=== PATIENT | female | born 1935 | race Caucasian/White ===

== ENCOUNTER 2018-01-01 05:42 | Inpatient (IN) ==
[2018-01-01] MEDS ORDERED: VANCOMYCIN INJ 1,000 MG in SODIUM CHLORIDE 0.9% 250 ML IV ONE (06:00)
[2018-01-01] MEDS ORDERED: ceFAZolin 1,000 MG in SYRINGE 1 EACH IV ONE (06:00)
[2018-01-01] MEDS ORDERED: FAMOTIDINE 20 MG TABLET PO ONE (06:00)
[2018-01-01] MEDS ORDERED: DIAZEPAM 2 MG TABLET PO ONE (06:00)
[2018-01-01] MEDS ORDERED: VANCOMYCIN 1,000 MG VIAL ONE (06:22)
[2018-01-01] MEDS ORDERED: ceFAZolin 1,000 MG VIAL ONE (06:22)
[2018-01-01] MEDS ORDERED: FAMOTIDINE 20 MG TABLET ONE (06:22)
[2018-01-01] MEDS ORDERED: DIAZEPAM 2 MG TABLET ONE (06:22)
[2018-01-01] MEDS ORDERED: TRANEXAMIC ACID 1,000 MG/10 ML VIAL ONE (06:36)
[2018-01-01] MEDS ORDERED: ROPIVACAINE 0.5% 30 ML VIAL ONE (06:37)
[2018-01-01] MEDS: LACTATED RINGERS 1,000 ML IV SCH (07:00)
[2018-01-01] MEDS ORDERED: BACITRACIN OINT 0.9 GM PACK TOP ONE (08:52)
[2018-01-01] MEDS ORDERED: MORPHINE 4 MG/1 ML VIAL IV PRN ×2 (09:21)
[2018-01-01] MEDS ORDERED: oxyCODONE IR 5 MG TABLET PO PRN (09:21)
[2018-01-01] MEDS ORDERED: MAGNESIUM HYDROXIDE SUSP 30 ML UDCUP PO PRN (09:21)
[2018-01-01] MEDS ORDERED: PROPOFOL 200 MG/20 ML VIAL IV ONE (09:37)
[2018-01-01] MEDS ORDERED: SEVOFLURANE 1 UNIT/15 MINUTE INH ONE (09:37)
[2018-01-01] MEDS ORDERED: PHENYLEPHRINE 10 MG/1 ML VIAL IV ONE (09:38)
[2018-01-01] MEDS ORDERED: ONDANSETRON 4 MG/2 ML VIAL ONE (09:38)
[2018-01-01] MEDS ORDERED: MIDAZOLAM 2 MG/2 ML VIAL ONE (09:38)
[2018-01-01] MEDS ORDERED: ROCURONIUM 100 MG/10 ML VIAL IV ONE (09:38)
[2018-01-01] MEDS ORDERED: ePHEDrine 50 MG/ML AMP ONE (09:38)
[2018-01-01] MEDS ORDERED: ACETAMINOPHEN 1,000 MG/100 ML VIAL IV ONE (09:38)
[2018-01-01] MEDS: KETOROLAC 15 MG/1 ML VIAL IV SCH ×3 (11:55→23:44)
[2018-01-01] MEDS: DEXT 5% LACT RING KCL 20 MEQ 20 MEQ/1,000 ML BAG IV SCH ×2 (12:58→22:40)
[2018-01-01] MEDS: oxyCODONE IR 5 MG TABLET PO PRN ×2 (15:24→19:46)
[2018-01-01] MEDS: ceFAZolin 1,000 MG in SYRINGE 1 EACH IV SCH ×2 (15:30→22:38)
[2018-01-01] MEDS: ACETAMINOPHEN 500 MG TABLET PO SCH ×2 (16:49→22:39)
[2018-01-01] MEDS: ONDANSETRON 4 MG/2 ML VIAL IV PRN (17:24)
[2018-01-02] MEDS: oxyCODONE IR 5 MG TABLET PO PRN (04:58)
[2018-01-02] MEDS: ONDANSETRON 4 MG/2 ML VIAL IV PRN (04:58)
[2018-01-02] MEDS: ACETAMINOPHEN 500 MG TABLET PO SCH ×2 (05:08→09:49)
[2018-01-02 05:41] LABS: Basophils # 0.1 10*3/uL (0.0-0.2); Basophils % 0.5 % (0.0-0.8); Eosinophils # 0.2 10*3/uL (0.0-0.87); Eosinophils % 2.5 % (0.00-10.9); Hematocrit 36.4 VOL% (35.7-47.0); Hemoglobin 12.6 GM/DL (12.0-16.0); Immature Granulocytes % 0.3 %; Immature Granulocytes Absolute 0.03 #; Lymphocytes # 1.8 10*3/uL (1.4-4.0); Lymphocytes % 18.6 % (21.3-54.2); Mean Corpuscular HGB Conc 34.6 GM/DL (32-36); Mean Corpuscular Hemoglobin 32 PG (27-34); Mean Corpuscular Volume 92.6 FL (87-102); Mean Platelet Volume 11.1 FL (9.6-12.0); Monocytes # 0.6 10*3/uL (0.11-0.8); Monocytes % 6.7 % (1.7-12.7); Neutrophils # 6.8 10*3/uL (1.4-7.4); Neutrophils % 71.4 % (38.7-73.9); Platelet Count 235 T/CUMM (130-400); Red Blood Count 3.93 MC/CUMM (3.8-5.5); Red Cell Distribution Width 12.5 % (9.3-17.3); White Blood Count 9.6 T/CUMM (4-12)
[2018-01-02] MEDS: LACTATED RINGERS 1,000 ML IV SCH (06:11)
[2018-01-02 06:17] LABS: Calcium 8.6 MG/DL (8.5-10.1); Osmolality,Calculated 264.5 MOS/KG (273-304); Potassium 3.6 MMOL/L (3.5-5.1)
[2018-01-02] MEDS ORDERED: LISINOPRIL 20 MG TABLET PO SCH (09:00)
[2018-01-02] MEDS ORDERED: ASPIRIN 325 MG TABLET PO SCH (09:00)
[2018-01-02] MEDS ORDERED: amLODIPine 5 MG TABLET PO SCH (09:00)
[2018-01-02] MEDS ORDERED: MAGNESIUM PO SCH (09:00)
[2018-01-02] MEDS ORDERED: SIMVASTATIN 20 MG TABLET PO SCH (09:00)
[2018-01-02] MEDS ORDERED: POTASSIUM CHLORIDE 10 MEQ TABLET PO SCH (09:00)
[2018-01-02] MEDS ORDERED: PANTOPRAZOLE 40 MG TABLET PO SCH (09:00)
[2018-01-02] MEDS ORDERED: ATENOLOL/CHLORTHALIDONE 50-25 MG TABLET PO SCH (09:00)
[2018-01-02] MEDS: DEXT 5% LACT RING KCL 20 MEQ 20 MEQ/1,000 ML BAG IV SCH (09:04)
[2018-01-02 11:48] VITALS: BP 168/67
== END 2018-01-02 12:07 | disposition home health service (06) | DRG 483 ==
LOC: N.OR 05:42 → N.SDSINP 05:43 → N.3E 10:22
PROVIDERS: ADMIT Orthopaedic Surgery; ATTEND Orthopaedic Surgery

== ENCOUNTER 2019-10-07 16:41 | Observation (INO) ==
[2019-10-07] MEDS ORDERED: ONDANSETRON 4 MG/2 ML VIAL IV PRN (16:45)
[2019-10-07] MEDS ORDERED: ACETAMINOPHEN 325 MG TABLET PO PRN (16:45)
[2019-10-07] MEDS ORDERED: DOCUSATE SODIUM 100 MG CAPSULE PO PRN (16:45)
[2019-10-07] MEDS ORDERED: ENOXAPARIN 80 MG/0.8 ML SYRINGE SUBCUT SCH (18:00)
[2019-10-07] MEDS ORDERED: oxyCODONE/ACETAMINOPHEN 5-325 MG TABLET PO PRN (18:40)
[2019-10-07 19:35] LABS: Basophils # 0.1 10*3/uL (0.0-0.2); Basophils % 0.6 % (0.0-0.8); Eosinophils # 0.2 10*3/uL (0.0-0.87); Eosinophils % 2.6 % (0.00-10.9); Hematocrit 38.8 VOL% (35.7-47.0); Hemoglobin 12.8 GM/DL (12.0-16.0); Immature Granulocytes % 0.5 %; Immature Granulocytes Absolute 0.04 #; Lymphocytes # 2.6 10*3/uL (1.4-4.0); Lymphocytes % 30.4 % (21.3-54.2); Mean Corpuscular Volume 98.5 FL (87-102); Monocytes % 6.4 % (1.7-12.7); Neutrophils % 59.5 % (38.7-73.9); Platelet Count 235 T/CUMM (130-400); Red Blood Count 3.94 MC/CUMM (3.8-5.5); Red Cell Distribution Width 11.2 % (9.3-17.3); White Blood Count 8.5 T/CUMM (4-12)
[2019-10-07 19:53] LABS: Albumin 3.7 G/DL (3.4-5.0); Bilirubin,Total 0.5 MG/DL (0.2-1.0); Calcium 9.1 MG/DL (8.5-10.1); Osmolality,Calculated 270.2 MOS/KG (273-304); Total Protein 7.2 G/DL (6.4-8.3)
[2019-10-07 19:56] LABS: Troponin I 0.195 NG/ML (0.00-0.045)
[2019-10-07] MEDS: NITROGLYCERIN 2% OINT 1 INCH/GM PACK TOP SCH (20:45)
[2019-10-07] MEDS: SODIUM CHLORIDE 0.9% 1,000 ML IV SCH (20:45)
[2019-10-08 05:50] LABS: VLDL CHOLESTEROL 18.6 MG/DL
[2019-10-08 05:51] LABS: Risk Ratio 2.16; Thyroid Stimulating Hormone 5.65 uIU/ml (0.358-3.74)
[2019-10-08] MEDS: MAGNESIUM GLUCONATE 500 MG TABLET PO SCH (09:20)
[2019-10-08] MEDS: ASPIRIN 325 MG TABLET PO SCH (09:20)
[2019-10-08] MEDS: amLODIPine 5 MG TABLET PO SCH (09:20)
[2019-10-08] MEDS: lisinopriL 20 MG TABLET PO SCH ×2 (09:21→21:29)
[2019-10-08] MEDS: atenoloL 50 MG TABLET PO SCH (09:21)
[2019-10-08] MEDS: POTASSIUM CHLORIDE 10 MEQ TABLET PO SCH (09:21)
[2019-10-08] MEDS: SIMVASTATIN 20 MG TABLET PO SCH (09:21)
[2019-10-08] MEDS: PANTOPRAZOLE 40 MG TABLET PO SCH (09:21)
[2019-10-08] MEDS: CHLORTHALIDONE 25 MG TABLET PO SCH (09:21)
[2019-10-08] MEDS: NITROGLYCERIN 2% OINT 1 INCH/GM PACK TOP SCH ×2 (09:22→21:29)
[2019-10-08] MEDS: SODIUM CHLORIDE 0.9% 1,000 ML IV SCH ×3 (09:22→20:47)
[2019-10-08 11:46] LABS: Apearance,Urine CLEAR (Clear); Bilirubin,Urine Negative (Negative); Blood, Urine Negative (Negative); Glucose,Urine (UA) Negative (Negative); Ketones,Urine Negative (Negative); Mucus,Urine Occasional /LPF (Occasional); Nitrite,Urine Negative (Negative); Protein,Urine Negative; RBC,Urine 1 /HPF (0-4); Squamous Epithelial Cell,Urine Occasional /HPF (0-10); Urine Color Colorless (Yellow); Urine Specific Gravity 1.005 (1.001-1.035); Urine Urobilinogen < 2.0 EU/DL (0.2-1.0); WBC,Urine <1 /HPF (0-6)
[2019-10-08] MEDS: ENOXAPARIN 80 MG/0.8 ML SYRINGE SUBCUT SCH (13:08)
[2019-10-08] MEDS ORDERED: REGADENOSON 0.4 MG/5 ML SYRINGE IV ONE (14:40)
[2019-10-09] MEDS: ENOXAPARIN 80 MG/0.8 ML SYRINGE SUBCUT SCH (00:26)
[2019-10-09] MEDS: SODIUM CHLORIDE 0.9% 1,000 ML IV SCH ×2 (03:34→09:29)
[2019-10-09] MEDS: POTASSIUM CHLORIDE 10 MEQ TABLET PO SCH (08:45)
[2019-10-09] MEDS: lisinopriL 20 MG TABLET PO SCH (08:45)
[2019-10-09] MEDS: MAGNESIUM GLUCONATE 500 MG TABLET PO SCH (08:45)
[2019-10-09] MEDS: CHLORTHALIDONE 25 MG TABLET PO SCH (08:45)
[2019-10-09] MEDS: amLODIPine 5 MG TABLET PO SCH (08:46)
[2019-10-09] MEDS: ASPIRIN 325 MG TABLET PO SCH (08:46)
[2019-10-09] MEDS: PANTOPRAZOLE 40 MG TABLET PO SCH (08:46)
[2019-10-09] MEDS: atenoloL 50 MG TABLET PO SCH (08:46)
[2019-10-09] MEDS: SIMVASTATIN 20 MG TABLET PO SCH (08:47)
[2019-10-09 08:52] VITALS: BP 157/85
[2019-10-09] MEDS: NITROGLYCERIN 2% OINT 1 INCH/GM PACK TOP SCH (09:29)
== END 2019-10-09 09:10 | disposition home or self-care (01) ==
LOC: N.TELES
PROVIDERS: ADMIT Family Medicine; ATTEND Family Medicine

== ENCOUNTER 2019-10-13 16:13 | Inpatient (IN) ==
[2019-10-13] MEDS ORDERED: HEPARIN/NACL 0.9% 2 UNITS/ML 1,000 ML IV ONE (16:25)
[2019-10-13] MEDS ORDERED: MIDAZOLAM 2 MG/2 ML VIAL ONE (16:25)
[2019-10-13] MEDS ORDERED: HYDROmorphone 2 MG/1 ML VIAL ONE (16:25)
[2019-10-13] MEDS ORDERED: LIDOCAINE 1% 20 ML VIAL ONE (16:25)
[2019-10-13] MEDS ORDERED: ENOXAPARIN 100 MG/ML SYRINGE SUBCUT STA (16:26)
[2019-10-13] MEDS ORDERED: ASPIRIN 325 MG TABLET PO STA (16:26)
[2019-10-13] MEDS ORDERED: NITROGLYCERIN SL 0.4 MG TABLET SL PRN (16:26)
[2019-10-13] MEDS ORDERED: HEPARIN/NACL 0.9% 2 UNITS/ML 500 ML IV ONE (16:35)
[2019-10-13] MEDS ORDERED: BIVALIRUDIN 250 MG VIAL IV ONE (16:39)
[2019-10-13 16:43] LABS: Basophils # 0.1 10*3/uL (0.0-0.2); Basophils % 0.6 % (0.0-0.8); Eosinophils # 0.2 10*3/uL (0.0-0.87); Eosinophils % 1.4 % (0.00-10.9); Hematocrit 41.3 VOL% (35.7-47.0); Hemoglobin 13.5 GM/DL (12.0-16.0); Immature Granulocytes % 0.3 %; Immature Granulocytes Absolute 0.03 #; Lymphocytes # 3.1 10*3/uL (1.4-4.0); Lymphocytes % 27.7 % (21.3-54.2); Mean Corpuscular HGB Conc 32.7 GM/DL (32-36); Mean Platelet Volume 10.9 FL (9.6-12.0); Monocytes % 5.9 % (1.7-12.7); Neutrophils % 64.1 % (38.7-73.9); Platelet Count 282 T/CUMM (130-400); Red Blood Count 4.13 MC/CUMM (3.8-5.5); Red Cell Distribution Width 11.6 % (9.3-17.3); White Blood Count 11.1 T/CUMM (4-12)
[2019-10-13] MEDS ORDERED: ATROPINE 1 MG/10 ML SYRINGE ONE ×2 (16:47→16:52)
[2019-10-13] MEDS ORDERED: diphenhydrAMINE CAP 25 MG CAPSULE PO PRN (16:54)
[2019-10-13] MEDS ORDERED: ALUMINUM/MAGNES/SIMETH MAX STR 30 ML UDCUP PO PRN (16:54)
[2019-10-13] MEDS ORDERED: ZALEPLON 5 MG CAPSULE PO PRN (16:54)
[2019-10-13] MEDS ORDERED: hydrALAZINE 20 MG/1 ML VIAL IV PRN (16:54)
[2019-10-13] MEDS ORDERED: LACTULOSE 20 GM/30 ML UDCUP PO PRN (16:54)
[2019-10-13] MEDS ORDERED: MAGNESIUM SULF RIDER 4 GM in PREMIX 1 EACH IV PRN (16:54)
[2019-10-13] MEDS ORDERED: ACETAMINOPHEN 325 MG TABLET PO PRN (16:54)
[2019-10-13] MEDS ORDERED: guaiFENesin/DM ER 600-30 MG TABLET PO PRN (16:54)
[2019-10-13] MEDS ORDERED: CALCIUM CARBONATE CHEW 500 MG TABLET PO PRN (16:54)
[2019-10-13] MEDS ORDERED: BISACODYL 5 MG TABLET PO PRN (16:54)
[2019-10-13] MEDS ORDERED: SIMETHICONE CHEW 125 MG TABLET PO PRN (16:54)
[2019-10-13] MEDS ORDERED: MAGNESIUM SULF RIDER 2 GM in PREMIX 1 EACH IV PRN (16:54)
[2019-10-13] MEDS ORDERED: MORPHINE 4 MG/1 ML VIAL IV PRN (16:54)
[2019-10-13 17:00] LABS: Albumin 3.9 G/DL (3.4-5.0); Bilirubin,Total 0.7 MG/DL (0.2-1.0); Calcium 9.6 MG/DL (8.5-10.1); Osmolality,Calculated 275.2 MOS/KG (273-304); Total Protein 7.2 G/DL (6.4-8.3)
[2019-10-13] MEDS: BIVALIRUDIN 250 MG in SODIUM CHLORIDE 0.9% 50 ML IV SCH ×3 (17:37→21:21)
[2019-10-13] MEDS ORDERED: FUROSEMIDE 40 MG/4 ML VIAL IV STA (18:08)
[2019-10-13] MEDS ORDERED: FUROSEMIDE 40 MG/4 ML VIAL ONE (18:12)
[2019-10-13] MEDS ORDERED: ALBUTEROL/IPRATROPIUM 3 ML NEB RESP TX STA (18:34)
[2019-10-13] MEDS ORDERED: ALBUTEROL/IPRATROPIUM 3 ML NEB RESP TX PRN (18:34)
[2019-10-13 19:01] LABS: INR 4.3
[2019-10-13 19:02] LABS: PT Patient Result 46.1 SECS (9.6-12.2); Partial Thromboplastin Time 88.6 SECS (20.8-36.0)
[2019-10-13 19:14] LABS: CKMB % 5.2 %
[2019-10-13 19:16] LABS: Troponin I 83.4 NG/ML (0.00-0.045)
[2019-10-13] MEDS: ALBUTEROL/IPRATROPIUM 3 ML NEB RESP TX SCH (19:40)
[2019-10-13] MEDS: ROSUVASTATIN 20 MG TABLET PO SCH (21:02)
[2019-10-13] MEDS: TICAGRELOR 90 MG TABLET PO SCH (21:02)
[2019-10-13] MEDS: ONDANSETRON 4 MG/2 ML VIAL IV PRN (21:12)
[2019-10-13] MEDS: oxyCODONE/ACETAMINOPHEN 5-325 MG TABLET PO SCH (22:11)
[2019-10-13 22:43] LABS: CKMB % 6.3 %
[2019-10-13 22:46] LABS: Troponin I > 200.000 NG/ML (0.00-0.045)
[2019-10-14] MEDS: ALBUTEROL/IPRATROPIUM 3 ML NEB RESP TX SCH ×4 (01:02→19:20)
[2019-10-14 02:42] LABS: CKMB % 5.9 %
[2019-10-14 02:47] LABS: Troponin I > 200.000 NG/ML (0.00-0.045)
[2019-10-14] MEDS: ONDANSETRON 4 MG/2 ML VIAL IV PRN (05:10)
[2019-10-14 05:34] LABS: Basophils % 0.3 % (0.0-0.8); Eosinophils # 0.1 10*3/uL (0.0-0.87); Hematocrit 36.7 VOL% (35.7-47.0); Hemoglobin 12.3 GM/DL (12.0-16.0); Immature Granulocytes % 0.4 %; Immature Granulocytes Absolute 0.06 #; Lymphocytes # 1.6 10*3/uL (1.4-4.0); Lymphocytes % 10.9 % (21.3-54.2); Mean Corpuscular HGB Conc 33.5 GM/DL (32-36); Mean Corpuscular Volume 97.1 FL (87-102); Mean Platelet Volume 10.9 FL (9.6-12.0); Monocytes % 6.6 % (1.7-12.7); Neutrophils % 80.8 % (38.7-73.9); Platelet Count 228 T/CUMM (130-400); Red Blood Count 3.78 MC/CUMM (3.8-5.5); Red Cell Distribution Width 11.7 % (9.3-17.3); White Blood Count 14.3 T/CUMM (4-12)
[2019-10-14 06:09] LABS: Calcium 8.5 MG/DL (8.5-10.1); Estimated Glom Filtration Rate 37 ML/MIN
[2019-10-14 06:10] LABS: Blood Urea Nitrogen 19 MG/DL (7-18); CKMB % 5.6 %; Glucose 140 MG/DL (74-106); HDL Cholesterol 57 MG/DL (40-60); Osmolality,Calculated 273.1 MOS/KG (273-304); Risk Ratio 2.18; Triglycerides 99 MG/DL (2-150); VLDL CHOLESTEROL 19.8 MG/DL
[2019-10-14 06:12] LABS: Troponin I > 200.000 NG/ML (0.00-0.045)
[2019-10-14] MEDS ORDERED: PROMETHAZINE INJ 12.5 MG in SODIUM CHLORIDE 0.9% 50 ML IV PRN (06:17)
[2019-10-14] MEDS ORDERED: SODIUM CHLORIDE 0.9% 250 ML IV ONE (06:17)
[2019-10-14 06:41] LABS: INR 1.1; PT Patient Result 11.4 SECS (9.6-12.2)
[2019-10-14] MEDS ORDERED: POTASSIUM CHLORIDE 20 MEQ TABLET PO ONE (08:26)
[2019-10-14] MEDS ORDERED: PANTOPRAZOLE 40 MG TABLET PO SCH (09:00)
[2019-10-14] MEDS: MAGNESIUM OXIDE 400 MG TABLET PO SCH (09:27)
[2019-10-14] MEDS: POTASSIUM CHLORIDE 10 MEQ TABLET PO SCH (09:29)
[2019-10-14] MEDS: TICAGRELOR 90 MG TABLET PO SCH ×2 (09:29→22:35)
[2019-10-14] MEDS: oxyCODONE/ACETAMINOPHEN 5-325 MG TABLET PO SCH ×2 (09:29→22:35)
[2019-10-14] MEDS: ASPIRIN CHEW 81 MG TABLET PO SCH (09:29)
[2019-10-14] MEDS: CHLORTHALIDONE 25 MG TABLET PO SCH (09:29)
[2019-10-14] MEDS: PANTOPRAZOLE 40 MG TABLET PO SCH (09:29)
[2019-10-14] MEDS: atenoloL 50 MG TABLET PO SCH (09:30)
[2019-10-14 10:30] LABS: CKMB % 5.2 %
[2019-10-14 10:33] LABS: Troponin I > 200.000 NG/ML (0.00-0.045)
[2019-10-14] MEDS: NITROGLYCERIN 2% OINT 1 INCH/GM PACK TOP SCH ×2 (12:42→18:37)
[2019-10-14] MEDS: ROSUVASTATIN 20 MG TABLET PO SCH (22:35)
[2019-10-15] MEDS: NITROGLYCERIN 2% OINT 1 INCH/GM PACK TOP SCH ×2 (00:08→06:13)
[2019-10-15] MEDS: ALBUTEROL/IPRATROPIUM 3 ML NEB RESP TX SCH ×3 (01:52→15:07)
[2019-10-15 04:49] LABS: Basophils % 0.3 % (0.0-0.8); Eosinophils # 0.3 10*3/uL (0.0-0.87); Eosinophils % 2.6 % (0.00-10.9); Hematocrit 34.4 VOL% (35.7-47.0); Hemoglobin 11.1 GM/DL (12.0-16.0); Immature Granulocytes % 0.4 %; Immature Granulocytes Absolute 0.05 #; Lymphocytes # 1.4 10*3/uL (1.4-4.0); Lymphocytes % 12.1 % (21.3-54.2); Mean Corpuscular HGB Conc 32.3 GM/DL (32-36); Mean Corpuscular Volume 100.3 FL (87-102); Mean Platelet Volume 11.3 FL (9.6-12.0); Neutrophils % 77.6 % (38.7-73.9); Platelet Count 187 T/CUMM (130-400); Red Blood Count 3.43 MC/CUMM (3.8-5.5); Red Cell Distribution Width 11.9 % (9.3-17.3); White Blood Count 11.1 T/CUMM (4-12)
[2019-10-15 04:57] LABS: PT Patient Result 11.1 SECS (9.6-12.2)
[2019-10-15 05:14] LABS: Osmolality,Calculated 271.2 MOS/KG (273-304)
[2019-10-15 05:31] LABS: CKMB % 1.8 %
[2019-10-15 05:35] LABS: Troponin I 90.9 NG/ML (0.00-0.045)
[2019-10-15] MEDS ORDERED: FUROSEMIDE 40 MG/4 ML VIAL IV SCH (09:00)
[2019-10-15] MEDS: MAGNESIUM OXIDE 400 MG TABLET PO SCH (10:03)
[2019-10-15] MEDS: CHLORTHALIDONE 25 MG TABLET PO SCH (10:03)
[2019-10-15] MEDS: oxyCODONE/ACETAMINOPHEN 5-325 MG TABLET PO SCH ×3 (10:03→20:59)
[2019-10-15] MEDS: PANTOPRAZOLE 40 MG TABLET PO SCH (10:04)
[2019-10-15] MEDS: POTASSIUM CHLORIDE 10 MEQ TABLET PO SCH (10:04)
[2019-10-15] MEDS: ASPIRIN CHEW 81 MG TABLET PO SCH (10:04)
[2019-10-15] MEDS: atenoloL 50 MG TABLET PO SCH (10:04)
[2019-10-15] MEDS: TICAGRELOR 90 MG TABLET PO SCH ×2 (10:04→20:59)
[2019-10-15] MEDS: ROSUVASTATIN 20 MG TABLET PO SCH (20:59)
[2019-10-16] MEDS: ALBUTEROL/IPRATROPIUM 3 ML NEB RESP TX SCH ×4 (00:19→19:09)
[2019-10-16 04:38] LABS: Basophils % 0.3 % (0.0-0.8); Eosinophils # 0.4 10*3/uL (0.0-0.87); Eosinophils % 3.6 % (0.00-10.9); Immature Granulocytes % 0.5 %; Immature Granulocytes Absolute 0.05 #; Lymphocytes # 1.4 10*3/uL (1.4-4.0); Lymphocytes % 13.2 % (21.3-54.2); Mean Corpuscular HGB Conc 33.3 GM/DL (32-36); Mean Corpuscular Volume 99.1 FL (87-102); Mean Platelet Volume 11.1 FL (9.6-12.0); Monocytes % 7.9 % (1.7-12.7); Neutrophils % 74.5 % (38.7-73.9); Platelet Count 196 T/CUMM (130-400); Red Blood Count 3.33 MC/CUMM (3.8-5.5); Red Cell Distribution Width 11.9 % (9.3-17.3); White Blood Count 10.8 T/CUMM (4-12)
[2019-10-16 05:20] LABS: CKMB % 0.9 %; Calcium 8.7 MG/DL (8.5-10.1); Osmolality,Calculated 265.7 MOS/KG (273-304)
[2019-10-16 05:21] LABS: Troponin I 59.2 NG/ML (0.00-0.045)
[2019-10-16] MEDS: POTASSIUM CHLORIDE 10 MEQ TABLET PO SCH (08:52)
[2019-10-16] MEDS: MAGNESIUM OXIDE 400 MG TABLET PO SCH (08:52)
[2019-10-16] MEDS: CHLORTHALIDONE 25 MG TABLET PO SCH (08:52)
[2019-10-16] MEDS: ASPIRIN CHEW 81 MG TABLET PO SCH (08:53)
[2019-10-16] MEDS: PANTOPRAZOLE 40 MG TABLET PO SCH (08:53)
[2019-10-16] MEDS: atenoloL 50 MG TABLET PO SCH (08:53)
[2019-10-16] MEDS: TICAGRELOR 90 MG TABLET PO SCH ×2 (08:53→21:59)
[2019-10-16] MEDS: oxyCODONE/ACETAMINOPHEN 5-325 MG TABLET PO SCH ×2 (08:53→21:59)
[2019-10-16] MEDS: POTASSIUM CHLORIDE 20 MEQ TABLET PO PRN ×3 (08:53→15:13)
[2019-10-16] MEDS: ROSUVASTATIN 20 MG TABLET PO SCH (21:59)
[2019-10-17] MEDS: ALBUTEROL/IPRATROPIUM 3 ML NEB RESP TX SCH ×4 (01:51→19:40)
[2019-10-17 05:35] LABS: Basophils % 0.2 % (0.0-0.8); Eosinophils # 0.3 10*3/uL (0.0-0.87); Eosinophils % 3.1 % (0.00-10.9); Hematocrit 32.9 VOL% (35.7-47.0); Immature Granulocytes % 0.5 %; Immature Granulocytes Absolute 0.05 #; Lymphocytes # 1.1 10*3/uL (1.4-4.0); Lymphocytes % 9.8 % (21.3-54.2); Mean Corpuscular HGB Conc 33.4 GM/DL (32-36); Mean Corpuscular Volume 98.8 FL (87-102); Mean Platelet Volume 11.3 FL (9.6-12.0); Monocytes % 6.7 % (1.7-12.7); Neutrophils % 79.7 % (38.7-73.9); Platelet Count 177 T/CUMM (130-400); Red Blood Count 3.33 MC/CUMM (3.8-5.5); Red Cell Distribution Width 11.8 % (9.3-17.3); White Blood Count 10.8 T/CUMM (4-12)
[2019-10-17 05:49] LABS: Calcium 8.3 MG/DL (8.5-10.1); Osmolality,Calculated 268.5 MOS/KG (273-304)
[2019-10-17] MEDS: CHLORTHALIDONE 25 MG TABLET PO SCH (08:40)
[2019-10-17] MEDS: POTASSIUM CHLORIDE 20 MEQ TABLET PO PRN (08:40)
[2019-10-17] MEDS: TICAGRELOR 90 MG TABLET PO SCH ×2 (08:40→21:50)
[2019-10-17] MEDS: MAGNESIUM OXIDE 400 MG TABLET PO SCH (08:40)
[2019-10-17] MEDS: oxyCODONE/ACETAMINOPHEN 5-325 MG TABLET PO SCH ×2 (08:40→21:52)
[2019-10-17] MEDS: POTASSIUM CHLORIDE 10 MEQ TABLET PO SCH (08:40)
[2019-10-17] MEDS: ASPIRIN CHEW 81 MG TABLET PO SCH (08:40)
[2019-10-17] MEDS: atenoloL 50 MG TABLET PO SCH (08:40)
[2019-10-17] MEDS: PANTOPRAZOLE 40 MG TABLET PO SCH (08:40)
[2019-10-17] MEDS: ONDANSETRON 4 MG/2 ML VIAL IV PRN (12:58)
[2019-10-17] MEDS: LOPERAMIDE 2 MG CAPSULE PO PRN ×2 (12:59→16:37)
[2019-10-17] MEDS: ROSUVASTATIN 20 MG TABLET PO SCH (21:49)
[2019-10-18] MEDS: ALBUTEROL/IPRATROPIUM 3 ML NEB RESP TX SCH ×2 (00:25→08:07)
[2019-10-18 05:28] LABS: Basophils # 0.1 10*3/uL (0.0-0.2); Basophils % 0.5 % (0.0-0.8); Eosinophils # 0.4 10*3/uL (0.0-0.87); Eosinophils % 3.8 % (0.00-10.9); Hematocrit 32.9 VOL% (35.7-47.0); Hemoglobin 10.8 GM/DL (12.0-16.0); Immature Granulocytes % 0.4 %; Immature Granulocytes Absolute 0.04 #; Lymphocytes # 1.1 10*3/uL (1.4-4.0); Lymphocytes % 11.6 % (21.3-54.2); Mean Corpuscular HGB Conc 32.8 GM/DL (32-36); Mean Corpuscular Volume 98.5 FL (87-102); Mean Platelet Volume 11.3 FL (9.6-12.0); Monocytes % 6.6 % (1.7-12.7); Neutrophils % 77.1 % (38.7-73.9); Platelet Count 203 T/CUMM (130-400); Red Blood Count 3.34 MC/CUMM (3.8-5.5); Red Cell Distribution Width 11.8 % (9.3-17.3); White Blood Count 9.3 T/CUMM (4-12)
[2019-10-18 05:51] LABS: Calcium 8.2 MG/DL (8.5-10.1); Osmolality,Calculated 266.5 MOS/KG (273-304)
[2019-10-18 08:13] VITALS: BP 111/64
[2019-10-18] MEDS: TICAGRELOR 90 MG TABLET PO SCH (09:04)
[2019-10-18] MEDS: CHLORTHALIDONE 25 MG TABLET PO SCH (09:04)
[2019-10-18] MEDS: PANTOPRAZOLE 40 MG TABLET PO SCH (09:04)
[2019-10-18] MEDS: atenoloL 50 MG TABLET PO SCH (09:04)
[2019-10-18] MEDS: MAGNESIUM OXIDE 400 MG TABLET PO SCH (09:04)
[2019-10-18] MEDS: ASPIRIN CHEW 81 MG TABLET PO SCH (09:04)
[2019-10-18] MEDS: POTASSIUM CHLORIDE 10 MEQ TABLET PO SCH (09:04)
[2019-10-18] MEDS: oxyCODONE/ACETAMINOPHEN 5-325 MG TABLET PO SCH (09:06)
== END 2019-10-18 11:56 | disposition home health service (06) | DRG 246 ==
LOC: N.ED 16:13 → N.CL 16:54 → N.ICU 16:55 → N.TELES 10-15 14:17
PROVIDERS: ADMIT Internal Medicine Cardiovascular Disease; ATTEND Internal Medicine Cardiovascular Disease
PROC: CLCCHCL (ICD-10-PCS; 2019-10-13 17:15)

== ENCOUNTER 2019-10-21 15:22 | Inpatient (IN) ==
[2019-10-21] MEDS ORDERED: ONDANSETRON 4 MG/2 ML VIAL IV PRN (15:47)
[2019-10-21] MEDS ORDERED: ACETAMINOPHEN 325 MG TABLET PO PRN (15:47)
[2019-10-21] MEDS ORDERED: FUROSEMIDE 20 MG/2 ML VIAL IV ONE (16:00)
[2019-10-21] MEDS ORDERED: BENZONATATE 100 MG CAPSULE PO PRN (16:05)
[2019-10-21 16:24] LABS: Basophils # 0.1 10*3/uL (0.0-0.2); Basophils % 0.8 % (0.0-0.8); Eosinophils # 0.4 10*3/uL (0.0-0.87); Eosinophils % 5.1 % (0.00-10.9); Hematocrit 35.1 VOL% (35.7-47.0); Immature Granulocytes % 0.5 %; Immature Granulocytes Absolute 0.04 #; Lymphocytes # 1.4 10*3/uL (1.4-4.0); Lymphocytes % 16.4 % (21.3-54.2); Mean Corpuscular HGB Conc 34.2 GM/DL (32-36); Mean Corpuscular Volume 95.6 FL (87-102); Mean Platelet Volume 10.2 FL (9.6-12.0); Monocytes % 7.4 % (1.7-12.7); Neutrophils % 69.8 % (38.7-73.9); Platelet Count 320 T/CUMM (130-400); Red Blood Count 3.67 MC/CUMM (3.8-5.5); Red Cell Distribution Width 11.5 % (9.3-17.3); White Blood Count 8.6 T/CUMM (4-12)
[2019-10-21 16:51] LABS: Albumin 3.2 G/DL (3.4-5.0); Bilirubin,Total 0.6 MG/DL (0.2-1.0); Calcium 9.4 MG/DL (8.5-10.1); Osmolality,Calculated 251.5 MOS/KG (273-304); Total Protein 7.6 G/DL (6.4-8.3)
[2019-10-21] MEDS: methylPREDNISolone SOD SUC 40 MG/1 ML VIAL IV SCH (17:34)
[2019-10-21] MEDS: cefTRIAXone 1,000 MG in SYRINGE 1 EACH IV SCH (17:35)
[2019-10-21 18:28] LABS: Apearance,Urine CLEAR (Clear); Bilirubin,Urine Negative (Negative); Blood, Urine Negative (Negative); Glucose,Urine (UA) Negative (Negative); Hyaline Casts,Urine 1 /LPF (0-3); Ketones,Urine Negative (Negative); Mucus,Urine Occasional /LPF (Occasional); Nitrite,Urine Negative (Negative); Protein,Urine Negative; RBC,Urine <1 /HPF (0-4); Squamous Epithelial Cell,Urine Occasional /HPF (0-10); Urine Color Yellow (Yellow); Urine Specific Gravity 1.008 (1.001-1.035); Urine Urobilinogen < 2.0 EU/DL (0.2-1.0); WBC,Urine 2 /HPF (0-6)
[2019-10-21] MEDS: ALBUTEROL/IPRATROPIUM 3 ML NEB RESP TX SCH ×2 (18:48)
[2019-10-21] MEDS: DOCUSATE SODIUM 100 MG CAPSULE PO SCH (21:06)
[2019-10-22] MEDS: ALBUTEROL/IPRATROPIUM 3 ML NEB RESP TX SCH ×4 (02:05→19:59)
[2019-10-22 04:59] LABS: Basophils % 0.2 % (0.0-0.8); Hematocrit 32.2 VOL% (35.7-47.0); Hemoglobin 11.1 GM/DL (12.0-16.0); Immature Granulocytes % 0.8 %; Immature Granulocytes Absolute 0.04 #; Lymphocytes # 0.6 10*3/uL (1.4-4.0); Lymphocytes % 11.8 % (21.3-54.2); Mean Corpuscular HGB Conc 34.5 GM/DL (32-36); Mean Corpuscular Volume 94.2 FL (87-102); Mean Platelet Volume 10.5 FL (9.6-12.0); Monocytes % 1.9 % (1.7-12.7); Neutrophils % 85.3 % (38.7-73.9); Platelet Count 308 T/CUMM (130-400); Red Blood Count 3.42 MC/CUMM (3.8-5.5); Red Cell Distribution Width 11.3 % (9.3-17.3); White Blood Count 5.2 T/CUMM (4-12)
[2019-10-22] MEDS: methylPREDNISolone SOD SUC 40 MG/1 ML VIAL IV SCH ×2 (05:05→17:13)
[2019-10-22 05:27] LABS: Calcium 8.7 MG/DL (8.5-10.1); Osmolality,Calculated 260.9 MOS/KG (273-304)
[2019-10-22] MEDS ORDERED: NITROGLYCERIN SL 0.4 MG TABLET SL PRN (07:15)
[2019-10-22] MEDS ORDERED: AZITHROMYCIN 250 MG TABLET PO SCH (09:00)
[2019-10-22] MEDS ORDERED: FUROSEMIDE 20 MG/2 ML VIAL IV SCH (09:00)
[2019-10-22] MEDS: DOCUSATE SODIUM 100 MG CAPSULE PO SCH ×2 (09:35→20:07)
[2019-10-22] MEDS: POTASSIUM CHLORIDE 20 MEQ TABLET PO SCH (09:35)
[2019-10-22] MEDS: PANTOPRAZOLE 40 MG TABLET PO SCH (09:35)
[2019-10-22] MEDS: ASPIRIN CHEW 81 MG TABLET PO SCH (09:35)
[2019-10-22] MEDS: MAGNESIUM GLUCONATE 500 MG TABLET PO SCH (09:36)
[2019-10-22] MEDS: TICAGRELOR 90 MG TABLET PO SCH ×2 (09:36→20:07)
[2019-10-22] MEDS: CHLORTHALIDONE 25 MG TABLET PO SCH (09:37)
[2019-10-22] MEDS: atenoloL 50 MG TABLET PO SCH (09:38)
[2019-10-22] MEDS: FUROSEMIDE 40 MG/4 ML VIAL IV SCH (09:39)
[2019-10-22] MEDS: oxyCODONE/ACETAMINOPHEN 5-325 MG TABLET PO SCH ×2 (09:44→20:07)
[2019-10-22] MEDS: cefTRIAXone 1,000 MG in SYRINGE 1 EACH IV SCH (17:14)
[2019-10-22] MEDS: ROSUVASTATIN 20 MG TABLET PO SCH (20:06)
[2019-10-23] MEDS: ALBUTEROL/IPRATROPIUM 3 ML NEB RESP TX SCH ×4 (00:27→21:01)
[2019-10-23] MEDS: methylPREDNISolone SOD SUC 40 MG/1 ML VIAL IV SCH ×2 (03:38→15:57)
[2019-10-23 06:05] LABS: Calcium 8.8 MG/DL (8.5-10.1); Osmolality,Calculated 268.7 MOS/KG (273-304)
[2019-10-23] MEDS: FUROSEMIDE 40 MG/4 ML VIAL IV SCH (08:51)
[2019-10-23] MEDS: POTASSIUM CHLORIDE 20 MEQ TABLET PO SCH (09:10)
[2019-10-23] MEDS: CHLORTHALIDONE 25 MG TABLET PO SCH (09:10)
[2019-10-23] MEDS: ASPIRIN CHEW 81 MG TABLET PO SCH (09:10)
[2019-10-23] MEDS: oxyCODONE/ACETAMINOPHEN 5-325 MG TABLET PO SCH ×2 (09:11→20:53)
[2019-10-23] MEDS: DOCUSATE SODIUM 100 MG CAPSULE PO SCH ×2 (09:11→20:46)
[2019-10-23] MEDS: TICAGRELOR 90 MG TABLET PO SCH ×2 (09:11→20:46)
[2019-10-23] MEDS: atenoloL 50 MG TABLET PO SCH (09:11)
[2019-10-23] MEDS: MAGNESIUM GLUCONATE 500 MG TABLET PO SCH (09:14)
[2019-10-23] MEDS: PANTOPRAZOLE 40 MG TABLET PO SCH (09:14)
[2019-10-23] MEDS: cefTRIAXone 1,000 MG in SYRINGE 1 EACH IV SCH (15:57)
[2019-10-23] MEDS: ROSUVASTATIN 20 MG TABLET PO SCH (20:45)
[2019-10-24] MEDS: ALBUTEROL/IPRATROPIUM 3 ML NEB RESP TX SCH ×4 (02:04→19:52)
[2019-10-24] MEDS: methylPREDNISolone SOD SUC 40 MG/1 ML VIAL IV SCH ×2 (04:30→16:08)
[2019-10-24] MEDS: ASPIRIN CHEW 81 MG TABLET PO SCH (08:18)
[2019-10-24] MEDS: PANTOPRAZOLE 40 MG TABLET PO SCH (08:18)
[2019-10-24] MEDS: atenoloL 50 MG TABLET PO SCH (08:18)
[2019-10-24] MEDS: POTASSIUM CHLORIDE 20 MEQ TABLET PO SCH (08:18)
[2019-10-24] MEDS: CHLORTHALIDONE 25 MG TABLET PO SCH (08:18)
[2019-10-24] MEDS: oxyCODONE/ACETAMINOPHEN 5-325 MG TABLET PO SCH ×2 (08:19→20:57)
[2019-10-24] MEDS: FUROSEMIDE 40 MG/4 ML VIAL IV SCH (08:21)
[2019-10-24 09:12] LABS: Calcium 9.1 MG/DL (8.5-10.1); Osmolality,Calculated 270.8 MOS/KG (273-304)
[2019-10-24] MEDS: MAGNESIUM GLUCONATE 500 MG TABLET PO SCH (10:06)
[2019-10-24] MEDS: DOCUSATE SODIUM 100 MG CAPSULE PO SCH ×2 (10:07→20:57)
[2019-10-24] MEDS: TICAGRELOR 90 MG TABLET PO SCH ×2 (10:07→20:57)
[2019-10-24] MEDS: cefTRIAXone 1,000 MG in SYRINGE 1 EACH IV SCH (16:09)
[2019-10-24] MEDS: ROSUVASTATIN 20 MG TABLET PO SCH (20:57)
[2019-10-25] MEDS: ALBUTEROL/IPRATROPIUM 3 ML NEB RESP TX SCH ×4 (00:51→18:46)
[2019-10-25] MEDS: methylPREDNISolone SOD SUC 40 MG/1 ML VIAL IV SCH ×2 (04:30→17:50)
[2019-10-25 09:08] LABS: Calcium 8.7 MG/DL (8.5-10.1); Osmolality,Calculated 275.5 MOS/KG (273-304)
[2019-10-25] MEDS: DOCUSATE SODIUM 100 MG CAPSULE PO SCH ×2 (09:17→20:55)
[2019-10-25] MEDS: ASPIRIN CHEW 81 MG TABLET PO SCH (09:17)
[2019-10-25] MEDS: PANTOPRAZOLE 40 MG TABLET PO SCH (09:18)
[2019-10-25] MEDS: CHLORTHALIDONE 25 MG TABLET PO SCH (09:18)
[2019-10-25] MEDS: MAGNESIUM GLUCONATE 500 MG TABLET PO SCH (09:18)
[2019-10-25] MEDS: atenoloL 50 MG TABLET PO SCH (09:18)
[2019-10-25] MEDS: TICAGRELOR 90 MG TABLET PO SCH ×2 (09:18→20:55)
[2019-10-25] MEDS: POTASSIUM CHLORIDE 20 MEQ TABLET PO SCH (09:19)
[2019-10-25] MEDS: oxyCODONE/ACETAMINOPHEN 5-325 MG TABLET PO SCH ×2 (09:20→21:34)
[2019-10-25] MEDS: FUROSEMIDE 40 MG/4 ML VIAL IV SCH (09:20)
[2019-10-25] MEDS: cefTRIAXone 1,000 MG in SYRINGE 1 EACH IV SCH (17:52)
[2019-10-25] MEDS: ROSUVASTATIN 20 MG TABLET PO SCH (20:55)
[2019-10-26] MEDS: ALBUTEROL/IPRATROPIUM 3 ML NEB RESP TX SCH ×2 (01:14→07:44)
[2019-10-26 05:00] LABS: Calcium 8.7 MG/DL (8.5-10.1); Osmolality,Calculated 277.4 MOS/KG (273-304)
[2019-10-26] MEDS: methylPREDNISolone SOD SUC 40 MG/1 ML VIAL IV SCH (05:00)
[2019-10-26 08:06] VITALS: BP 141/70
[2019-10-26] MEDS: FUROSEMIDE 40 MG/4 ML VIAL IV SCH (08:47)
[2019-10-26] MEDS: DOCUSATE SODIUM 100 MG CAPSULE PO SCH (08:47)
[2019-10-26] MEDS: atenoloL 50 MG TABLET PO SCH (08:47)
[2019-10-26] MEDS: oxyCODONE/ACETAMINOPHEN 5-325 MG TABLET PO SCH (08:48)
[2019-10-26] MEDS: CHLORTHALIDONE 25 MG TABLET PO SCH (08:48)
[2019-10-26] MEDS: TICAGRELOR 90 MG TABLET PO SCH (08:48)
[2019-10-26] MEDS: PANTOPRAZOLE 40 MG TABLET PO SCH (08:48)
[2019-10-26] MEDS: POTASSIUM CHLORIDE 20 MEQ TABLET PO SCH (08:48)
[2019-10-26] MEDS: ASPIRIN CHEW 81 MG TABLET PO SCH (08:48)
[2019-10-26] MEDS: MAGNESIUM GLUCONATE 500 MG TABLET PO SCH (08:53)
== END 2019-10-26 11:22 | disposition home or self-care (01) | DRG 280 ==
LOC: N.TELES
PROVIDERS: ADMIT Family Medicine; ATTEND Family Medicine

== ENCOUNTER 2022-05-06 12:39 | Inpatient (IN) ==
[2022-05-06] MEDS ORDERED: DOCUSATE SODIUM 100 MG CAPSULE PO PRN (13:03)
[2022-05-06] MEDS ORDERED: GLUCAGON 1 MG VIAL IM PRN (13:03)
[2022-05-06] MEDS ORDERED: ACETAMINOPHEN 325 MG TABLET PO PRN (13:03)
[2022-05-06] MEDS ORDERED: ONDANSETRON 4 MG/2 ML VIAL IV PRN (13:03)
[2022-05-06] MEDS ORDERED: DEXTROSE 10% 250 ML BAG IV PRN (13:15)
[2022-05-06] MEDS ORDERED: ENOXAPARIN 30 MG/0.3 ML SYRINGE SUBCUT SCH (13:30)
[2022-05-06] MEDS: cefTRIAXone 1,000 MG in SODIUM CHLORIDE 0.9% 100 ML IV SCH (14:25)
[2022-05-06] MEDS: POTASSIUM CHLORIDE INJ 10 MEQ in SODIUM CHLORIDE 0.9% 1,000 ML IV SCH (16:07)
[2022-05-06] MEDS: INSULIN REGULAR 100 UNIT/ML SUBCUT SCH (22:43)
[2022-05-07] MEDS: POTASSIUM CHLORIDE INJ 10 MEQ in SODIUM CHLORIDE 0.9% 1,000 ML IV SCH ×3 (00:29→22:28)
[2022-05-07 04:48] LABS: Basophils # 0.1 10*3/uL (0.0-0.2); Basophils % 0.7 % (0.0-0.8); Eosinophils # 0.3 10*3/uL (0.0-0.87); Eosinophils % 3.1 % (0.00-10.9); Hematocrit 36.2 VOL% (35.7-47.0); Hemoglobin 12.3 GM/DL (12.0-16.0); Immature Granulocytes % 0.2 %; Immature Granulocytes Absolute 0.02 #; Lymphocytes # 3.2 10*3/uL (1.4-4.0); Lymphocytes % 34.9 % (21.3-54.2); Mean Corpuscular Volume 98.1 FL (87-102); Mean Platelet Volume 10.7 FL (9.6-12.0); Monocytes # 0.8 10*3/uL (0.11-0.8); Monocytes % 8.2 % (1.7-12.7); Neutrophils % 52.9 % (38.7-73.9); Platelet Count 217 T/CUMM (130-400); Red Blood Count 3.69 MC/CUMM (3.8-5.5); Red Cell Distribution Width 11.6 % (9.3-17.3); White Blood Count 9.1 T/CUMM (4-12)
[2022-05-07 05:09] LABS: Calcium 9.5 MG/DL (8.5-10.1); Osmolality,Calculated 284.7 MOS/KG (273-304)
[2022-05-07] MEDS ORDERED: POTASSIUM CHLORIDE 20 MEQ TABLET PO ONE ×5 (06:00→19:00)
[2022-05-07] MEDS ORDERED: traMADol 50 MG TABLET PO PRN (06:46)
[2022-05-07] MEDS ORDERED: NITROGLYCERIN SL 0.4 MG TABLET SL PRN (06:46)
[2022-05-07] MEDS ORDERED: POTASSIUM CHLORIDE RIDER 10 MEQ/100 ML PREMIX IV PRN (06:53)
[2022-05-07] MEDS: PANTOPRAZOLE 40 MG TABLET PO SCH (08:40)
[2022-05-07] MEDS: ASPIRIN CHEW 81 MG TABLET PO SCH (08:40)
[2022-05-07] MEDS: LEVOTHYROXINE 25 MCG TABLET PO SCH (08:40)
[2022-05-07] MEDS: MAGNESIUM CHLORIDE 64 MG TABLET PO SCH (08:41)
[2022-05-07] MEDS: INSULIN REGULAR 100 UNIT/ML SUBCUT SCH ×4 (08:48→21:24)
[2022-05-07] MEDS ORDERED: TICAGRELOR 90 MG TABLET PO SCH (09:00)
[2022-05-07] MEDS ORDERED: CLOPIDOGREL 75 MG TABLET PO SCH (09:00)
[2022-05-07] MEDS: cefTRIAXone 1,000 MG in SODIUM CHLORIDE 0.9% 100 ML IV SCH (13:36)
[2022-05-07] MEDS ORDERED: CELECOXIB 100 MG CAPSULE PO PRN (14:29)
[2022-05-07] MEDS: atenoloL 50 MG TABLET PO SCH (16:11)
[2022-05-07] MEDS: ROSUVASTATIN 20 MG TABLET PO SCH (21:06)
[2022-05-08 05:59] LABS: Calcium 9.1 MG/DL (8.5-10.1); Osmolality,Calculated 284.3 MOS/KG (273-304); Potassium 2.9 MMOL/L (3.5-5.1)
[2022-05-08] MEDS: LEVOTHYROXINE 25 MCG TABLET PO SCH (06:04)
[2022-05-08] MEDS: POTASSIUM CHLORIDE 20 MEQ TABLET PO PRN ×2 (06:09→09:55)
[2022-05-08] MEDS: INSULIN REGULAR 100 UNIT/ML SUBCUT SCH ×4 (07:43→21:11)
[2022-05-08] MEDS: POTASSIUM CHLORIDE INJ 10 MEQ in SODIUM CHLORIDE 0.9% 1,000 ML IV SCH ×2 (08:41→20:29)
[2022-05-08] MEDS: cefTRIAXone 1,000 MG in SODIUM CHLORIDE 0.9% 100 ML IV SCH (08:43)
[2022-05-08] MEDS: ASPIRIN CHEW 81 MG TABLET PO SCH (09:55)
[2022-05-08] MEDS: MAGNESIUM CHLORIDE 64 MG TABLET PO SCH (09:55)
[2022-05-08] MEDS: SPIRONOLACTONE 25 MG TABLET PO SCH (09:56)
[2022-05-08] MEDS: CLOPIDOGREL 75 MG TABLET PO SCH (09:57)
[2022-05-08] MEDS: PANTOPRAZOLE 40 MG TABLET PO SCH (09:59)
[2022-05-08] MEDS: ASCORBIC ACID 500 MG TABLET PO SCH (09:59)
[2022-05-08] MEDS: CHOLECALCIFEROL 5,000 UNIT TABLET PO SCH (10:00)
[2022-05-08] MEDS: atenoloL 50 MG TABLET PO SCH (10:13)
[2022-05-08] MEDS ORDERED: POTASSIUM CHLORIDE 20 MEQ TABLET PO ONE ×2 (13:00→21:00)
[2022-05-08] MEDS: ROSUVASTATIN 20 MG TABLET PO SCH (20:27)
[2022-05-09 05:33] LABS: Basophils # 0.1 10*3/uL (0.0-0.2); Basophils % 0.8 % (0.0-0.8); Eosinophils # 0.5 10*3/uL (0.0-0.87); Eosinophils % 6.1 % (0.00-10.9); Hematocrit 34.1 VOL% (35.7-47.0); Hemoglobin 11.5 GM/DL (12.0-16.0); Immature Granulocytes % 0.3 %; Immature Granulocytes Absolute 0.03 #; Lymphocytes # 2.3 10*3/uL (1.4-4.0); Lymphocytes % 26.5 % (21.3-54.2); Mean Corpuscular HGB Conc 33.7 GM/DL (32-36); Mean Corpuscular Volume 100.9 FL (87-102); Mean Platelet Volume 10.6 FL (9.6-12.0); Monocytes # 0.7 10*3/uL (0.11-0.8); Monocytes % 8.5 % (1.7-12.7); Neutrophils % 57.8 % (38.7-73.9); Platelet Count 199 T/CUMM (130-400); Red Blood Count 3.38 MC/CUMM (3.8-5.5); Red Cell Distribution Width 11.9 % (9.3-17.3); White Blood Count 8.6 T/CUMM (4-12)
[2022-05-09 05:45] LABS: Calcium 9.3 MG/DL (8.5-10.1)
[2022-05-09] MEDS: LEVOTHYROXINE 25 MCG TABLET PO SCH (06:03)
[2022-05-09] MEDS: INSULIN REGULAR 100 UNIT/ML SUBCUT SCH ×2 (07:55→11:17)
[2022-05-09] MEDS: POTASSIUM CHLORIDE INJ 10 MEQ in SODIUM CHLORIDE 0.9% 1,000 ML IV SCH (07:55)
[2022-05-09] MEDS ORDERED: atenoloL 25 MG TABLET PO SCH (09:00)
[2022-05-09] MEDS ORDERED: amLODIPine 5 MG TABLET PO SCH (09:00)
[2022-05-09] MEDS: SPIRONOLACTONE 25 MG TABLET PO SCH (09:29)
[2022-05-09] MEDS: MAGNESIUM CHLORIDE 64 MG TABLET PO SCH (09:29)
[2022-05-09] MEDS: ASPIRIN CHEW 81 MG TABLET PO SCH (09:29)
[2022-05-09] MEDS: cefTRIAXone 1,000 MG in SODIUM CHLORIDE 0.9% 100 ML IV SCH (09:29)
[2022-05-09] MEDS: ASCORBIC ACID 500 MG TABLET PO SCH (09:29)
[2022-05-09] MEDS: CLOPIDOGREL 75 MG TABLET PO SCH (09:30)
[2022-05-09] MEDS: PANTOPRAZOLE 40 MG TABLET PO SCH (09:30)
[2022-05-09] MEDS: CHOLECALCIFEROL 5,000 UNIT TABLET PO SCH (09:30)
[2022-05-09 11:36] VITALS: BP 121/54
== END 2022-05-09 14:59 | disposition home or self-care (01) | DRG 641 ==
LOC: N.2W → N.5E 05-07 17:42
PROVIDERS: ADMIT Family Medicine; ATTEND Family Medicine